=== PATIENT | male | born 1955 | race Caucasian/White ===

== ENCOUNTER 2018-01-09 12:06 | Inpatient (IN) | payer OTHER, MEDICARE ==
[~2018-01-09] VITALS: Ht 180.3 cm; Wt 81.8 kg
[2018-01-09] MEDS ORDERED: levoFLOXACIN-Levaquin 750MG/D5 150 ML IV STA (12:45)
[2018-01-09] MEDS ORDERED: normal saline 1000ML IV soln IVB ONE (12:50)
[2018-01-09 12:56] LABS: BASOPHILS % (AUTO) 0 % (0-1); EOSINOPHILS % (AUTO) 0 % (0-6); HEMATOCRIT 41.9 % (42.0-52.0); HEMOGLOBIN 14.6 g/dl (14.0-17.9); LYMPHOCYTES # (AUTO) 0.2 X10'3 (1.1-4.8); MEAN CORPUSCULAR HEMOGLOBIN 32.2 PG (27.0-31.0); MEAN CORPUSCULAR HGB CONC 34.7 % (33.0-36.5); MEAN CORPUSCULAR VOLUME 92.8 FL (78-98); MEAN PLATELET VOLUME 8.9 FL (7.4-10.4); MONOCYTES % (AUTO) 1.3 % (2-12); NEUTROPHILS % (AUTO) 91.7 % (42-75); PLATELET COUNT 118 X10'3 (140-440); RED BLOOD COUNT 4.52 X10'6 (4.70-6.10); RED CELL DISTRIBUTION WIDTH 13.6 % (11.5-14.5); WHITE BLOOD COUNT 3.3 X10'3 (4.5-11.0)
[2018-01-09 13:10] LABS: ALANINE AMINOTRANSFERASE 8 U/L (12-78); ALBUMIN/GLOBULIN RATIO 0.7 (1.1-1.5); ALKALINE PHOSPHATASE 64 IU/L (46-116); ANION GAP 11 (8-16); ASPARTATE AMINO TRANSFERASE 30 U/L (10-37); BILIRUBIN,TOTAL 0.7 MG/DL (0.1-1.0); BLOOD UREA NITROGEN 18 MG/DL (7-18); BUN/CREATININE RATIO 15.9 (5.4-32.0); CALCIUM 8.9 MG/DL (8.5-10.1); CHLORIDE 98 MMOL/L (99-107); CREATININE 1.13 MG/DL (0.60-1.10); GLUCOSE 118 MG/DL (70-104); POTASSIUM 3.8 MMOL/L (3.5-5.1); SODIUM 135 MMOL/L (135-145); TOTAL CARBON DIOXIDE 26.2 MMOL/L (24-32); TOTAL PROTEIN 7.2 G/DL (6.4-8.2); eGFR 65 ML/MIN
[2018-01-09] MEDS ORDERED: HYDROcodone/acetaminophen 10/325mg tab PO ONE (13:55)
[2018-01-09] MEDS ORDERED: potassium Cl 40MEQ/NS 500ml 500 ML IV PRN ×2 (14:20)
[2018-01-09] MEDS ORDERED: magnesium 2GM in 50ml NS 50 ML IV PRN (14:20)
[2018-01-09] MEDS ORDERED: magnesium 4gm in 100ml NS 100 ML IV PRN (14:20)
[2018-01-09] MEDS ORDERED: magnesium Cl slow-release 64mg tablet PO PRN (14:20)
[2018-01-09] MEDS ORDERED: albuterol 2.5 MG/3 ML nebule NEB PRN (14:20)
[2018-01-09] MEDS ORDERED: magnesium hydroxide 30ml (MOM) UD suspension PO PRN (14:20)
[2018-01-09] MEDS ORDERED: bisacodyl 10mg suppository rectal RC PRN (14:20)
[2018-01-09] MEDS ORDERED: HYDROcodone/acetaminophen 5mg/325mg tablet PO PRN (14:20)
[2018-01-09] MEDS ORDERED: ondansetron/PF 4mg/2ml inj IV PRN (14:20)
[2018-01-09] MEDS ORDERED: mag hydrox/Alum hydrox/simeth 30ml oral suspension PO PRN (14:20)
[2018-01-09] MEDS ORDERED: acetaminophen 325mg tablet PO PRN ×2 (14:20)
[2018-01-09] MEDS ORDERED: potassium Cl 20 mEq SR tablet PO PRN ×2 (14:20)
[2018-01-09 17:48] LABS: TOTAL CELLS COUNTED 100
[2018-01-09 17:49] LABS: PLATELET ESTIMATE DECREASED
[2018-01-09] MEDS ORDERED: NO HOME MEDS (18:08)
[2018-01-09 18:15] VITALS: BP 124/80
[2018-01-09] MEDS: HYDROcodone/acetaminophen 10/325mg tab PO PRN (20:06)
[2018-01-09 22:00] VITALS: BP 129/91
[2018-01-10] MEDS: HYDROcodone/acetaminophen 10/325mg tab PO PRN ×3 (03:27→14:01)
[2018-01-10 06:17] LABS: BASOPHILS % (AUTO) 0.1 % (0-1); EOSINOPHILS % (AUTO) 0 % (0-6); HEMATOCRIT 37.4 % (42.0-52.0); HEMOGLOBIN 13.2 g/dl (14.0-17.9); LYMPHOCYTES # (AUTO) 0.4 X10'3 (1.1-4.8); LYMPHOCYTES % (AUTO) 8.2 % (21-51); MEAN CORPUSCULAR HEMOGLOBIN 32.8 PG (27.0-31.0); MEAN CORPUSCULAR HGB CONC 35.4 % (33.0-36.5); MEAN CORPUSCULAR VOLUME 92.7 FL (78-98); MONOCYTES # (AUTO) 0.1 X10'3 (0-0.9); MONOCYTES % (AUTO) 2.7 % (2-12); NEUTROPHILS # (AUTO) 3.9 X10'3 (1.8-7.7); PLATELET COUNT 106 X10'3 (140-440); RED BLOOD COUNT 4.04 X10'6 (4.70-6.10); RED CELL DISTRIBUTION WIDTH 13.3 % (11.5-14.5); WHITE BLOOD COUNT 4.3 X10'3 (4.5-11.0)
[2018-01-10 06:34] LABS: ALBUMIN 2.2 G/DL (3.4-5.0); ANION GAP 7 (8-16); BLOOD UREA NITROGEN 14 MG/DL (7-18); BUN/CREATININE RATIO 15.4 (5.4-32.0); CALCIUM 8.8 MG/DL (8.5-10.1); CHLORIDE 102 MMOL/L (99-107); CREATININE 0.91 MG/DL (0.60-1.10); GLUCOSE 104 MG/DL (70-104); MAGNESIUM 1.8 MG/DL (1.5-2.4); POTASSIUM 4.1 MMOL/L (3.5-5.1); SODIUM 137 MMOL/L (135-145); TOTAL CARBON DIOXIDE 27.7 MMOL/L (24-32); eGFR 84 ML/MIN
[2018-01-10 06:55] VITALS: BP 124/80
[2018-01-10] MEDS ORDERED: K and/or MAG REPLACEMENT MC SCH (08:00)
[2018-01-10] MEDS ORDERED: enoxaparin 40mg/0.4ml syringe SUBCUT SCH (08:00)
[2018-01-10] MEDS ORDERED: levoFLOXACIN-Levaquin 750MG/D5 150 ML IV SCH (08:00)
[2018-01-10 08:51] LABS: BANDS% (MANUAL) 11 % (0-10); LYMPHOCYTES % (MANUAL) 11 % (21-51); MONOCYTES % (MANUAL) 6 % (2-12); NEUTROPHILS % (MANUAL) 72 % (42-75); PLATELET ESTIMATE DECREASED; TOTAL CELLS COUNTED 100
[2018-01-10 10:00] VITALS: BP 144/94
[2018-01-10] MEDS ORDERED: pneumococcal 23-VAL P-sac vacc 25 mcg/0.5ml vial IMVAC ONE (10:00)
[2018-01-10 10:35] VITALS: BP 132/88
[2018-01-10] MEDS ORDERED: LEVO500T2 PO (15:24)
[2018-01-10] MEDS ORDERED: lactobacillus rhamnosus 10,000 MMU CELLS/CAPSULE PO SCH (20:00)
== END 2018-01-10 17:18 | disposition home or self-care (01) | DRG 871 ==
LOC: ER 12:07 → ED HOLD 14:20 → EDBEDREQ 17:06 → ORTHO 4S 17:55
PROVIDERS: ADMIT Internal Medicine; ATTEND Internal Medicine
DX: A41.9 Sepsis, unspecified organism (principal); N17.0 Acute kidney failure with tubular necrosis; J96.01 Acute respiratory failure with hypoxia; E43 Unspecified severe protein-calorie malnutrition; J15.9 Unspecified bacterial pneumonia; Z85.038 Personal history of other malignant neoplasm of large intestine; Z85.118 Personal history of other malignant neoplasm of bronchus and lung; Z86.73 Personal history of transient ischemic attack (TIA), and cerebral infarction without residual deficits; Z23 Encounter for immunization; Z68.25 Body mass index [BMI] 25.0-25.9, adult
CPT/HCPCS: 36415; 71046; 80048; 80053; 83605; 83735; 85025; 87040; 87070; 93005; 94760; 96365; 99285; J1650; J1956; J7030